=== PATIENT | female | born 1995 | race African-American/Black ===

== ENCOUNTER 2017-03-05 14:10 | Emergency (ER) | payer MEDICAID ==
[~2017-03-05] VITALS: Ht 152.4 cm; Wt 56.0 kg
[~2017-03-05 14:10] MED LIST: HYDR-523; SULF1TAB48
[2017-03-05 14:17] VITALS: BP 104/56
== END 2017-03-05 16:25 | disposition left against medical advice (07) ==
LOC: ER 14:10
DX: Z53.21 Procedure and treatment not carried out due to patient leaving prior to being seen by health care provider (principal)

== ENCOUNTER 2017-03-08 16:04 | Emergency (ER) | payer MEDICAID, OTHER ==
[~2017-03-08] VITALS: Ht 152.4 cm; Wt 55.0 kg
[2017-03-08 18:12] VITALS: BP 112/61
== END 2017-03-08 19:05 | disposition home or self-care (01) ==
LOC: ER 16:04
DX: Z48.01 Encounter for change or removal of surgical wound dressing (principal); F17.200 Nicotine dependence, unspecified, uncomplicated; F12.10 Cannabis abuse, uncomplicated; Z88.0 Allergy status to penicillin; Z88.6 Allergy status to analgesic agent
CPT/HCPCS: 99283

== ENCOUNTER 2017-09-01 14:16 | Emergency (ER) | payer MEDICAID, OTHER ==
[~2017-09-01] VITALS: Ht 152.4 cm; Wt 59.0 kg
[2017-09-01] MEDS ORDERED: SODIUM CHLORIDE 0.9% 1,000 ML IV ONE (17:28)
[2017-09-01 18:29] LABS: CHLORIDE 106 mEq/L (98-107)
[2017-09-01 18:30] LABS: BASOPHILS % 0.6 % (0.0-2.0); EOSINOPHILS % 1.8 % (0.0-5.0); HEMATOCRIT. 35.1 % (36.0-48.0); HEMOGLOBIN. 11.3 g/dL (12.0-16.0); INR 1.1; LYMPHOCYTES % 22.8 % (20.0-50.0); MEAN CORPUSCULAR HEMOGLOBIN 23.7 pg (28.0-32.0); MEAN CORPUSCULAR VOLUME 73.5 fL (81.0-99.0); MEAN PLATELET VOLUME 8.8 fl (7.4-10.4); MONOCYTES % 6.8 % (2.0-8.0); PLATELET 273 x1000/uL (130-400); PROTHROMBIN TIME 11.4 sec (9.4-11.6); RED BLOOD CELL COUNT 4.78 mill/uL (4.2-5.4); RED CELL DISTRIBUTION WIDTH 19.2 % (11.6-14.6)
[2017-09-01 18:42] LABS: CLARITY URINE CLEAR (CLEAR); COLOR URINE YELLOW (YELLOW); KETONES URINE NEGATIVE (NEGATIVE); LEUKOCYTE ESTERASE URINE NEGATIVE (NEGATIVE); NITRITE URINE NEGATIVE (NEGATIVE); OCCULT BLOOD URINE 2+ (NEGATIVE); PROTEIN URINE NEGATIVE (NEGATIVE); SPECIFIC GRAVITY URINE 1.025 (1.005-1.030)
[2017-09-01 19:08] LABS: *AMPHETAMINES SCREEN URINE NEGATIVE (NEGATIVE); *BARBITURATES SCREEN URINE NEGATIVE (NEGATIVE); *BENZODIAZEPINES SCREEN URINE NEGATIVE (NEGATIVE); *COCAINE SCREEN URINE NEGATIVE (NEGATIVE); METHADONE URINE SCREEN NEGATIVE (NEGATIVE); OPIATES URINE SCREEN NEGATIVE (NEGATIVE); PHENCYCLIDINE URINE SCREEN NEGATIVE (NEGATIVE)
[2017-09-01 19:11] LABS: CANNABINOID URINE SCREEN PRESUMTIVE POSITIVE (NEGATIVE)
[2017-09-01 19:20] VITALS: BP 110/71
== END 2017-09-01 19:25 | disposition home or self-care (01) ==
LOC: ER 14:21
DX: R10.31 Right lower quadrant pain (principal); F12.10 Cannabis abuse, uncomplicated; Z88.0 Allergy status to penicillin; Z88.6 Allergy status to analgesic agent
CPT/HCPCS: 36415; 80053; 80305; 81001; 81025; 83690; 85025; 85610; 99284; J7030; Z7610

== ENCOUNTER 2023-08-14 16:47 | Emergency (ER) | payer MEDICAID, OTHER ==
[~2023-08-14] VITALS: Ht 157.5 cm; Wt 64.0 kg
[2023-08-14 16:53] VITALS: O2SAT 100
[2023-08-14 17:20] LABS: CLARITY URINE CLEAR (CLEAR); COLOR URINE YELLOW (YELLOW); GLUCOSE URINE NEGATIVE (NEGATIVE); KETONES URINE NEGATIVE (NEGATIVE); LEUKOCYTE ESTERASE URINE NEGATIVE (NEGATIVE); NITRITE URINE NEGATIVE (NEGATIVE); OCCULT BLOOD URINE 3+ (NEGATIVE); PROTEIN URINE NEGATIVE (NEGATIVE); SPECIFIC GRAVITY URINE 1.008 (1.005-1.030); UROBILINOGEN URINE 0.2 E.U./dL (0.2-1.0)
[2023-08-14] MEDS ORDERED: CEFTRIAXONE SODIUM 500MG VIAL IM ONE (17:30)
[2023-08-14 17:38] LABS: BACTERIA URINE 1+; SQUAMOUS EPITHELIAL CELL URINE FEW /lpf (RARE/1+)
[2023-08-14 17:39] LABS: WBC URINE 0-2 /hpf (0-2)
[2023-08-14] MEDS ORDERED: DOXY100C5 MT (18:41)
[2023-08-14] MEDS ORDERED: CEFTRIAXONE SODIUM 500MG VIAL IM NR (20:00)
[2023-08-14 20:36] VITALS: BP 128/68; PULSE 87; RESP 19; TEMP 97.7
[2023-08-17 04:11] LABS: CHLAMYDIA TRACHOMATIS NAA Negative (Negative); NEISSERIA GONORRHOEAE NAA Negative (Negative)
== END 2023-08-14 20:38 | disposition home or self-care (01) ==
LOC: ER 16:47
DX: Z20.2 Contact with and (suspected) exposure to infections with a predominantly sexual mode of transmission (principal); I49.8 Other specified cardiac arrhythmias; F12.90 Cannabis use, unspecified, uncomplicated; Z88.0 Allergy status to penicillin; Z88.6 Allergy status to analgesic agent
CPT/HCPCS: 99283; 86592; 87491; 87591; 81003; 96372; J0696